=== PATIENT | male | born 1995 | race Caucasian/White ===

== ENCOUNTER 2023-04-22 01:08 | Emergency (ER) | payer SELFPAY ==
[~2023-04-22] VITALS: Ht 170.2 cm; Wt 60.0 kg
[2023-04-22 01:19] VITALS: BP 119/86; PULSE 86; RESP 15; TEMP 96.4; O2SAT 100
[2023-04-22] MEDS ORDERED: CEPHALEXIN 250MG CAPSULE PO ONE (01:30)
[2023-04-22] MEDS ORDERED: SULFAMETHOXAZOLE/TRIMETHOPRIM 800/160MG TABLET PO ONE (01:30)
[2023-04-22] MEDS ORDERED: CEPH500C2 MT (01:31)
[2023-04-22] MEDS ORDERED: IBUP-2029 MT (01:31)
[2023-04-22] MEDS ORDERED: SULF1TAB48 MT (01:31)
== END 2023-04-22 01:51 ==
LOC: ER 01:08
DX: L03.113 Cellulitis of right upper limb (principal)
CPT/HCPCS: 99283